=== PATIENT | female | born 1995 | race Hispanic/Latino ===

== ENCOUNTER 2020-01-09 15:39 | Inpatient (IN) | payer OTHER ==
[~2020-01-09] VITALS: Ht 162.6 cm; Wt 72.6 kg
[2020-01-12] MEDS ORDERED: LOVENOX60 MG INJ (06:18)
[2020-01-12] MEDS ORDERED: VITAFOL-OB+DHA1 EACH PO (06:18)
--- NOTE | 2020-01-12 09:06 | NUR ---
01/12/20 0906 [facility]-PT ARIVES IN PACU. PT ON RA AND SLEEPY. VSS. PT'S FUNDUS FIRM AT UMBILICUS. SCANT DRAINAGE ON PETE PADS. PT FALLS ASLEEP EASILY. PT REPORTS PAIN IN ABD WHEN FUNDAL CHECK PERFORMED. PT DENIES NAUSEA. SPINAL AT T12 0900-VSS. PT RESTING AND WAKES EASILY. YUAN REMIANS IN PLACE. SCANT DRAINAGE NOTED. SEE C-SETION CHARTING.
--- NOTE | 2020-01-14 09:26 | PR ---
[facility] [address], [place] [address] Signed PP Progress Notes Datetime Report Generated by TERESITA: 01/14/2020 09:26 SUBJECTIVE: [id number] Pain: Within Normal Limits Nausea/Vomiting: Denies Flatus: Yes Bowel Movement: Yes Vital Signs: [id number] Vital Signs: Reviewed; Within Normal Limits EXAM: Met Cardiovascular: Normal Respiratory: Normal Abdomen/Uterus: Normal Lochia: Normal Breasts: Normal Extremities: Normal Incision: Normal Progress: Normal Exam Comments: RRR, no edema FFBU, incision c/d/i IMPRESSION/PLAN/PROCEDURES: [id number] Impression: Normal Progression Other Impression: Chronic anemia of Plan: Continue Present Management; Discharge Procedures: None Other Procedures: Iron infusion Progress Notes: POD#2 s/p RLTCS @ 38 weeks -progressing well postop, pain moderately controlled with motrin, lochia light, -requesting DC to home today Anemia of -hgb 8.1 preop, 7.6 POD#1, stable at 7.6 today -s/p IV iron infusion 1000mg yesterday, tolerated well H/o pulmonary embolism -on therapeutic lovenox 65mg subcutaneous BID -pt to continue for 6 weeks *Electronically Signed* 01/14/20 0926 CATRINA ALBERTO DO PATIENT NAME: GURU GRACE PROGRESS NOTE DATE OF : [birth year] PHYSICIAN: CATRINA ALBERTO DO RPT #: [id number] REPORT IS CONFIDENTIAL AND NOT TO BE RELEASED WITHOUT AUTHORIZATION [facility] [address] [place] [id number] Signed H/o hemorrhage with prior H/o prior at 36 weeks for vasa previa Signing Physician: Catrina Alberto DO Copies: ~ *Electronically Signed* 01/14/20925 CATRINA ALBERTO DO PATIENT NAME: GURU GRACE PROGRESS NOTE DATE OF : 94 PHYSICIAN: CATRINA ALBERTO DO RPT #: [id number] REPORT IS CONFIDENTIAL AND NOT TO BE RELEASED WITHOUT AUTHORIZATION
--- NOTE | 2020-01-16 19:08 | OR ---
[facility] [address] [place], [place] [address] Signed DATE OF OPERATION: 01/12/2020 SURGEON: Catrina Alberto DO MANUFACTURING QUALITY MANAGER: Herb Sheets M.D. PREOPERATIVE DIAGNOSES: 1. History of prior . 2. History of pulmonary embolism, on therapeutic Lovenox. 3. History of hemorrhage. 4. Thirty-eight weeks' gestation POSTOPERATIVE DIAGNOSES: 1. History of prior . 2. History of pulmonary embolism, on therapeutic Lovenox. 3. History of hemorrhage. 4. Thirty-eight weeks' gestation. 5. Delivery of term viable female . PROCEDURE: Repeat low-transverse delivery. ANESTHESIA: Spinal. ESTIMATED BLOOD LOSS: 600 mL. LINES: None. DRAINS: Maier catheter. FINDINGS: Live born female in ANTONIETA position, weighing 7 pounds 3.7 ounces. Apgars, 8 and 9 at 1 and 5 minutes respectively. Moderate scar tissue at the rectus fascia, significant rectus diastasis, very thin lower uterine segment, able to see baby's hair through the lower uterine segment without being a true uterine window. Otherwise, normal-appearing Electronically Signed By: CATRINA ALBERTO DO 01/16/20 1908 PATIENT NAME: ELSY ALEJANDROGURU OPERATIVE REPORT DATE OF : [birth year] REPORT #: [id number] PHYSICIAN: CATRINA ALBERTO DO PCP: NO PRIMARY CARE PHYSICIAN REPORT IS CONFIDENTIAL AND NOT TO BE RELEASED WITHOUT AUTHORIZATION [facility] [address] [place], [place] [address] Signed uterus, bilateral tubes, and ovaries. INDICATIONS: The patient is a 24-year-old, G5, P2-1-1-3, at 38 weeks gestation wit a history significant for pulmonary embolism 5 days postoperative after her last for vasa previa. It was noted that during her prior procedure, she had significant hemorrhage requiring Bakri balloon and blood transfusion. She was treated on Eliquis initially after her last . Through this , has been on therapeutic Lovenox 65 mg b.i.d. and also per [facility] recommendation the patient was not bridged to heparin due to concern for insufficient anti-coagulation. [place] [facility] with [place] blood bank supplies and limited available personnel on nights and weekends, we discussed doing a repeat at 38 weeks instead of 39 weeks to further reduce the chance of spontaneous onset of labor requiring emergent delivery at which point all resources may not be fully available. Risks, benefits, and alternatives were discussed including risk of insufficient lung development and patient elected to proceed. DESCRIPTION OF PROCEDURE: She was taken to the operating room and spinal anesthesia was placed and she was given 2g ancef. She was then positioned in supine position with a leftward tilt. SCDs were placed bilaterally. Maier was inserted and abdomen was prepped and draped in the normal sterile fashion. Prior pfannenstiel incision scar was excised then incision was carried down to the underlying fascia with Bovie cautery, cauterizing small perforating vessels as the incision was carried down. Underlying the fascia, significant rectus diastasis was noted. Fascial incision was extended with Santiago scissors. Inferior margin of the rectus fascia was grasped with Kochers, elevated, underlying rectus muscle was dissected off. In a similar manner superior margin was grasped with kochers, elevated, and underlying rectus muscle dissected off bluntly and sharply with Santiago scissors. Peritoneum was grasped in the midline with hemostats, entered sharply with Metzenbaum scissors. Peritoneal incision was extended vertically both superiorly and inferiorly with Metzenbaum scissors, taken care to avoid the bladder, which was noted to be high. Km retractor was placed, notably head/dark hair could be seen through the lower uterine segment. Although it was not a true window, it was very, very thin. Incision was made just above the vesicouterine reflection and Electronically Signed By: CATRINA ALBERTO DO 01/16/20 1908 PATIENT NAME: ELSY ALEJANDROGURU OPERATIVE REPORT DATE OF : [birth year] REPORT #: [id number] PHYSICIAN: CATRINA ALBERTO DO PCP: NO PRIMARY CARE PHYSICIAN REPORT IS CONFIDENTIAL AND NOT TO BE RELEASED WITHOUT AUTHORIZATION [facility] [address] [place] [id number] Signed extended laterally with superior and inferior retraction. Infant's head was grasped and gently elevated the incision and baby was easily delivered. Cord was doubly clamped immediately and the was handed off to awaiting nursery RN. Segment of cord was doubly clamped and set aside. Cord blood was collected for type and Jose and placenta was manually expressed. One gram TXA was administered IV after placental delivery and Pitocin was started. Excellent uterine tone was noted almost immediately. Hysterotomy was repaired in the double-layer closure, first layer in the running locked manner with 0-Monocryl and second in an imbricating manner, also with 0-Monocryl. Segment of oozing serosa was noted and hemostasis was noted after placement of a single simple interrupted suture with 0-Monocryl. Km retractor was removed, gutters were cleared of clots, and pelvis was suction/irrigated with warm sterile saline. Due to the patient's anticoagulated status and concern for bleeding, with resuming therapeutic anticoagulation, Tisseel was applied over the minimally oozing hysterotomy, followed by a sheet of ACell. Peritoneum was closed in a running fashion with 3-0 Vicryl. Rectus muscles were reapproximated with 0-Vicryl in a simple interrupted fashion. The fascia was then grasped with Kochers and the rectus muscle was inspected. Small perforating vessels were cauterized with Bovie cautery. Once hemostasis was noted, ACell powder was applied over the top. The fascia was closed with 0-Vicryl in a running fashion with 2 separate pieces, starting at each apex and meeting in the middle. Subcutaneous closure was performed with 3-0 Vicryl in a simple interrupted fashion after cauterization of superficial bleeding vessels. Skin was closed with skin clips. Incision was top dressed. Uterus was creded with minimal bleeding vaginally and slight oozing noted at the skin incision line. The patient tolerated the procedure very well and was taken to the PACU for recovery. Lap and sponge counts were correct and instrument counts were correct. We will restart her therapeutic anticoagulation 9 hours postop. DO BAY Rand/BERTINL /[id number] Electronically Signed By: CATRINA ALBERTO DO 01/16/20 1908 PATIENT NAME: GURU GRACE OPERATIVE REPORT DATE OF : [birth year] REPORT #: [id number] PHYSICIAN: CATRINA ALBERTO DO PCP: NO PRIMARY CARE PHYSICIAN REPORT IS CONFIDENTIAL AND NOT TO BE RELEASED WITHOUT AUTHORIZATION [address] [address] Signed Copies: ~ Electronically Signed By: CATRINA ALBERTO DO 01/16/20 1908 PATIENT NAME: GURU GRACE OPERATIVE REPORT DATE OF : [birth year] REPORT #: [id number] PHYSICIAN: CATRINA ALBERTO DO PCP: NO PRIMARY CARE PHYSICIAN REPORT IS CONFIDENTIAL AND NOT TO BE RELEASED WITHOUT AUTHORIZATION
== END 2020-01-14 12:45 | disposition home or self-care (01) | DRG 788 ==
LOC: FBC 01-12 05:16 → MS 01-12 15:44 → FBC 01-12 15:45
PROVIDERS: ADMIT Obstetrics & Gynecology; ATTEND Obstetrics & Gynecology
PROC: 10D00Z1 Extraction of Products of Conception, Low, Open Approach (ICD-10-PCS; principal; 2020-01-12 07:30)
DX: O34.211 Maternal care for low transverse scar from previous cesarean delivery (principal); N85.8 Other specified noninflammatory disorders of uterus; Z3A.38 38 weeks gestation of pregnancy; Z37.0 Single live birth; O99.02 Anemia complicating childbirth; D64.9 Anemia, unspecified; Z86.711 Personal history of pulmonary embolism; Z79.01 Long term (current) use of anticoagulants; Z87.891 Personal history of nicotine dependence
CPT/HCPCS: 01961; 36415; 85027; 86850; 86900; 86901; A9270; J0690; J1650; J1750; J2001; J2250; J2274; J2370; J2405; J2550; J2590; J3010; J7050; J7121